=== PATIENT | female | born 2000 | race American Indian/Alaskan Native ===

== ENCOUNTER 2021-10-17 22:11 | Emergency (ER) | payer MEDICAID ==
[2021-10-18] MEDS ORDERED: TETANUS,DIPH,PERTUSS(ACELL) VACCINE 0.5 ML SYRINGE IM ONE (08:01)
[2021-10-18] MEDS ORDERED: LIDOCAINE-MPF (1%) 10 MG/1 ML VIAL 5 ML INFILTRATI ONE (08:02)
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
[2021-10-18 08:41] VITALS: BP 106/70
== END 2021-10-18 08:41 | disposition home or self-care (01) ==
LOC: ED 22:11
DX: S01.111A Laceration without foreign body of right eyelid and periocular area, initial encounter (principal); X58.XXXA Exposure to other specified factors, initial encounter; Y93.89 Activity, other specified; Y92.89 Other specified places as the place of occurrence of the external cause; Y99.8 Other external cause status
CPT/HCPCS: 12001; 90471; 90715; 99282; J3490; 96372

== ENCOUNTER 2021-11-18 20:42 | Emergency (ER) | payer MEDICAID ==
[2021-11-19] MEDS ORDERED: SODIUM CHLORIDE 0.9% 1000 ML 1,000 ML IV ONE (02:41)
[2021-11-19 03:26] LABS: Basophils # (Auto) 0.1 K/mm3 (0.0-0.1); Basophils % (Auto) 0.4 % (0.0-1.8); Eosinophils # (Auto) 0.1 K/mm3 (0.0-0.4); Eosinophils % (Auto) 0.5 % (0.0-4.3); Lymphocytes # (Auto) 2.8 K/mm3 (1.2-5.4); Lymphocytes % (Auto) 25.2 % (13.4-35.0); Mean Corpuscular HGB Conc 30 % (30-34); Mean Corpuscular Volume 75 fl (79-97); Monocytes # (Auto) 0.9 K/mm3 (0.0-0.8); Monocytes % (Auto) 8.4 % (0.0-7.3); Platelet Count 320 K/mm3 (140-440)
[2021-11-19 03:27] LABS: HCG Qualitative,Urine Positive (Negative)
[2021-11-19 03:29] LABS: Hematocrit 34.3 % (30.3-42.9); Hemoglobin 10.4 gm/dl (10.1-14.3)
[2021-11-19 03:32] LABS: INR 0.87 (0.87-1.13)
[2021-11-19 03:39] LABS: Blood Urea Nitrogen 8 mg/dL (7-17); Calcium 9.3 mg/dL (8.4-10.2); Hemolysis Index 7
[2021-11-19 03:40] LABS: Bilirubin,Urine Negative (Negative); Color,Urine Yellow (Yellow)
[2021-11-19 03:41] LABS: Blood,Urine Large (Negative); Protein,Urine <15 mg/dL mg/dL (Negative); Urobilinogen,Urine < 2.0 mg/dL (<2.0)
[2021-11-19 03:49] LABS: BUN/Creatinine Ratio 13
--- NOTE | 2021-11-19 05:08 | Emergency Department Report ---
ED General Adult HPI - General Chief complaint: Vaginal Bleeding Stated complaint: VAGINAL BLEEDING Time Seen by Provider: 11/19/21 02:41 Source: EMS Mode of arrival: Ambulatory Limitations: No Limitations - History of Present Illness Initial comments: 6 weeks , started spotting yesterday and is bleeding more today. Denies abd pain pt is with one misscarriage , had sexual intercourse yesterday then started spotting then became heavier with some cramps -: Gradual, days(s) Location: abdomen Radiation: non-radiation Severity scale (0 -10): 0 Associated Symptoms: denies: denies other symptoms, confusion, chest pain, cough - Related Data Previous Rx's Medication Instructions Recorded Last Taken Type Ibuprofen [Motrin 600 MG tab] 600 mg PO Q8H PRN #30 tablet 04/14/15 Unknown Rx Allergies Allergy/AdvReac Type Severity Reaction Status Date / Time Penicillins Allergy Swelling Verified 10/17/21 23:30 pineapple Allergy Itching Uncoded 04/14/15 14:11 ED Review of Systems ROS: Stated complaint: VAGINAL BLEEDING Other details as noted in HPI Constitutional: denies: chills, fever Eyes: denies: eye pain, eye discharge, vision change ENT: denies: ear pain, throat pain Respiratory: denies: cough, shortness of breath, wheezing Cardiovascular: denies: chest pain, palpitations Endocrine: no symptoms reported Gastrointestinal: denies: abdominal pain, nausea, diarrhea Genitourinary: denies: urgency, dysuria, discharge Musculoskeletal: denies: back pain, joint swelling, arthralgia Skin: denies: rash, lesions Neurological: denies: headache, weakness, paresthesias Psychiatric: denies: anxiety, depression Hematological/Lymphatic: denies: easy bleeding, easy bruising ED Past Medical Hx - Past Medical History Previous Medical History?: No Hx Hypertension: No - Surgical History Past Surgical History?: Yes Additional Surgical History: c section x1 - Social History Smoking Status: Unknown if ever smoked - Medications Home Medications: Home Medications Medication Instructions Recorded Confirmed Last Taken Type Ibuprofen [Motrin 600 MG tab] 600 mg PO Q8H PRN #30 tablet 04/14/15 Unknown Rx ED Physical Exam - General Limitations: No Limitations General appearance: alert, in no apparent distress - Head Head exam: Present: atraumatic, normocephalic - Eye Eye exam: Present: normal appearance - ENT ENT exam: Present: mucous membranes moist - Neck Neck exam: Present: normal inspection - Respiratory Respiratory exam: Present: normal lung sounds bilaterally. Absent: respiratory distress - Cardiovascular Cardiovascular Exam: Present: regular rate, normal rhythm. Absent: systolic murmur, diastolic murmur, rubs, gallop - GI/Abdominal GI/Abdominal exam: Present: soft, normal bowel sounds - Extremities Exam Extremities exam: Present: normal inspection - Back Exam Back exam: Present: normal inspection - Neurological Exam Neurological exam: Present: alert, oriented X3 - Psychiatric Psychiatric exam: Present: normal affect, normal mood - Skin Skin exam: Present: warm, dry, intact, normal color. Absent: rash ED Course Vital Signs 11/18/21 11/19/21 20:55 03:42 Temperature 98.3 F Pulse Rate 72 Blood Pressure 126/74 O2 Sat by Pulse 100 Oximetry ED Medical Decision Making - Lab Data Result diagrams: 11/19/21 02:54 11/19/21 02:54 - Radiology Data Radiology results: report reviewed, image reviewed - Medical Decision Making vss , pt passed fertal tissue while here, sent to lab , h.h stable , US showed not IUP , Bhcg is low , brown ee her ob this week Critical care attestation.: If time is entered above; I have spent that time in minutes in the direct care of this critically ill patient, excluding procedure time. ED Disposition Clinical Impression: Complete Disposition: 01 HOME / SELF CARE / HOMELESS Is pt being admited?: No Does the pt Need Aspirin: No Condition: Stable Instructions: Miscarriage, [id number], Miscarriage
[2021-11-19 05:23] VITALS: BP 120/62
--- NOTE | 2021-11-19 05:25 | Ultrasound Report ---
. ULTRASOUND OBSTETRIC REASON FOR EXAM: Vaginal bleeding TECHNIQUE: Transabdominal and transvaginal ultrasound was performed to evaluate a first trimester pre gnancy. COMPARISON: None available. FINDINGS: FINDINGS: No intrauterine is visualized. No suspicious adnexal mass is visualized. MATERNAL FINDINGS: Uterus: The uterus demonstrates a normal sonographic appearance. The uterus measures 8.2 cm. Endometr ial stripe measures 0.6 cm. Right ovary: The right ovary measures 4.6 cm. The right ovary demonstrates a normal sonographic appea hemal and normal doppler flow. Left ovary: The left ovary measures 1.9 cm. The left ovary demonstrates a normal sonographic appearan ce and normal doppler flow. Cul-de-sac: There is no free fluid. IMPRESSION: No IUP identified. of unknown location. Findings could reflect an early intrauterine pregna ncy, occult ectopic , or recent spontaneous . In a hemodynamically stable patient, r ecommend follow-up with pelvic ultrasound in 7-10 days. Signer Name: Con Klein MD Signed: 11/19/2021 5:21 AM Workstation Name: [id number]
== END 2021-11-19 05:22 | disposition home or self-care (01) ==
LOC: ED 20:42
DX: O03.9 Complete or unspecified spontaneous abortion without complication (principal); Z98.890 Other specified postprocedural states; Z88.0 Allergy status to penicillin; Z91.018 Allergy to other foods
CPT/HCPCS: 36415; 76801; 80048; 81001; 81025; 84702; 85025; 85610; 96360; 99284; J7030